=== PATIENT | female | born 1960 | race Caucasian/White ===

== ENCOUNTER → 2024-12-14 | Outpatient (CLI) | payer SELFPAY ==
[~2024-12-14] MED LIST: CALCIUM + D 5001 TAB PO
== END | disposition home or self-care (01) ==
LOC: MAMMO 08:27
PROVIDERS: ATTEND Nurse Practitioner Primary Care
DX: Z12.31 Encounter for screening mammogram for malignant neoplasm of breast (principal); R92.323 Mammographic fibroglandular density, bilateral breasts